=== PATIENT | female | born 1950 | race Caucasian/White ===

== ENCOUNTER 2022-02-23 08:06 | Outpatient (CLI) | payer MEDICARE, SELFPAY ==
--- NOTE | 2022-02-23 08:14 | MM_ITS ---
WS: [id number] BILATERAL SCREENING DIGITAL BREAST TOMOSYNTHESIS MAMMOGRAM WITH CAD HISTORY: SCREENING COMPARISON: 04/19/2021 and 11/07/2017 Bilateral CC and MLO views with tomosynthesis and synthetic mammography submitted. Computer aided det ection analyzed. Breast composition: There are scattered areas of fibroglandular density. No suspicious masses, microc alcifications or architectural distortion. MM/[id number] IMPRESSION: BI-RADS: 1-Negative FOLLOW UP: 1 Year Follow-up
== END 2022-02-23 08:07 | disposition home or self-care (01) ==
PROVIDERS: PCP Family Medicine; Visit Provider Family Medicine
DX: Z12.31 Encounter for screening mammogram for malignant neoplasm of breast (principal)
CPT/HCPCS: 77063; 77067

== ENCOUNTER 2022-03-24 10:07 | Outpatient (CLI) | payer MEDICARE, SELFPAY ==
--- NOTE | 2022-03-24 | USCV_ITS ---
Anthony Rader Age: 71 Gender: F : 1950 Exam Date: 03/24/2022 10:37 Ordering Phys: Neymar Stapleton MD Technologist: Nitesh Lester Exam Location: [facility] – [place] Indication: History of Takotsubo cardiomyopathy BP: 124 / 68 HR: Rhythm: Sinus Technical Quality: Fair MEASUREMENTS (Male / Female) Normal Values 2D ECHO LV Diastolic Diameter PLAX 3.9 cm 4.2 - 5.9 / 3.9 - 5.3 cm LV Systolic Diameter PLAX 2.5 cm IVS Diastolic Thickness 0.6 cm 0.6 - 1.0 / 0.6 - 0.9 cm IVS Systolic Thickness 0.8 cm LVPW Diastolic Thickness 1.0 cm 0.6 - 1.0 / 0.6 - 0.9 cm LVPW Systolic Thickness 0.9 cm LVOT Diameter 2.0 cm LV Ejection Fraction 2D Teich 67.3 % LV Ejection Fraction MOD 2C 67.4 % LV Ejection Fraction 2C AL 68.4 % LA Diameter 3.1 cm LA Width 3.1 cm LA Height 3.2 cm RA Width 2.7 cm RA Height 3.4 cm Aorta at Sinotubular Diameter 2.3 cm IVC Diameter 1.2 cm M-MODE Aortic Annulus Diameter 2.4 cm LA Ao Ratio MM 1.3 MV E Point Septal Separation 0.2 cm DOPPLER AV Peak Velocity 139.3 cm/s LVOT Peak Velocity 127.0 cm/s AV Area Cont Eq vti 2.7 cm squared AV Area Cont Eq pk 3.0 cm squared MV Peak Velocity 100.0 cm/s MV Area PHT 6.5 cm squared Mitral E to A Ratio 1.3 MV E' Velocity 46.5 cm/s Mitral E to MV E' Ratio 5.0 Mitral E to LV E' Lateral Ratio 5.0 Mitral E to LV E' Septal Ratio 5.0 TR Peak Velocity 244.4 cm/s TR Peak Gradient 23.9 mmHg TR Mean Velocity 198.6 cm/s TR Mean Gradient 16.2 mmHg TR Velocity Time Integral 61.5 cm Right Atrial Pressure 3.0 mmHg Pulmonary Artery Systolic Pressu 26.9 mmHg RV Acceleration Time 0.1 s RV Ejection Time 0.3 s RV AcT/ET 0.5 FINDINGS Left Ventricle Normal left ventricular size, systolic function and wall thickness, with no regional wall motion abnormalities. Left ventricular ejection fraction is estimated at 65 %. Normal diastolic function. Right Ventricle Normal right ventricular size and systolic function. Right ventricular systolic pressure 22 mmHg. Right Atrium Normal right atrial size. Right atrial pressure estimated at 3 mmHg. Left Atrium Normal left atrial size. Mitral Valve Mildly thickened mitral valve. No mitral valve stenosis. Mild mitral valve regurgitation. Aortic Valve Structurally normal trileaflet aortic valve. No aortic valve stenosis. Mild to moderate aortic valve regurgitation. Tricuspid Valve Structurally normal tricuspid valve. Trace tricuspid valve regurgitation. Pulmonic Valve Structurally normal pulmonic valve. No pulmonary valve stenosis. No pulmonary valve regurgitation. Pericardium No pericardial effusion. Aorta Normal size aortic root and proximal ascending aorta. IVC Normal IVC dimension with >50% respiratory change of the inferior vena cava. CONCLUSIONS 1. Normal left ventricular size, systolic function and wall thickness, with no regional wall motion abnormalities. Left ventricular ejection fraction is estimated at 65 %. Normal diastolic function. 2. Mild mitral valve regurgitation. 3. Mild to moderate aortic valve regurgitation. 4. Pulmonary artery pressure estimated at 22 mmHg. 5. No prior similar studies to compare. Lawanda Chin MD (Electronically Signed) Final Date: 24 March 2022 15:17 S
== END 2022-03-24 10:08 | disposition home or self-care (01) ==
PROVIDERS: PCP Family Medicine; Visit Provider Family Medicine
DX: I08.0 Rheumatic disorders of both mitral and aortic valves (principal)
CPT/HCPCS: 93306

== ENCOUNTER 2022-08-03 13:30 | Outpatient (CLI) | payer MEDICARE, SELFPAY ==
--- NOTE | 2022-08-03 13:33 | XR_ITS ---
WS: [id number] SCREENING DEXA SCAN [place] CLINICAL INFORMATION: POSTMENOPAUSAL COMPARISON: None. FINDINGS: The L1-L4 bone mineral density measures 0.939 g/cm2. This corresponds to a T score score of -2.0 and Z score of 0.2. Left femoral neck bone mineral density measures 0.540 g/cm2. This corresponds to a T score of -3.7 an d Z score of -1.8. Right femoral neck bone mineral density measures 0.621 g/cm2. This corresponds to a T score -3.1of an d Z score of -1.1. Mean femoral neck bone mineral density measures 0.580 g/cm2. This corresponds to a T score of -3.4 an d Z score of -1.5. XR/XR DEXA axial skeleton* [id number] IMPRESSION: Osteopenia lumbar spine. Osteoporosis femoral necks. Patient's FRAX calculated 10 year probability for major osteoporotic fracture i s 23.8 % and osteoporotic hip fracture is 11.8%.
== END 2022-08-03 13:31 | disposition home or self-care (01) ==
LOC: RAD 13:31
PROVIDERS: PCP Family Medicine; Visit Provider Family Medicine
DX: Z78.0 Asymptomatic menopausal state (principal); M85.88 Other specified disorders of bone density and structure, other site
CPT/HCPCS: 77080

== ENCOUNTER 2023-02-24 09:44 | Outpatient (CLI) | payer MEDICARE, SELFPAY ==
--- NOTE | 2023-02-24 09:54 | MM_ITS ---
WS: [id number] Bilateral screening 3D tomosynthesis digital mammogram, 02/24/2023 Clinical Data: SCREENING Comparison: 02/23/2022, 03/23/2021, 11/07/2017, 09/13/2016. Findings: The breast parenchymal pattern shows heterogeneous density. No spiculated masses or clustered calcifi cations are seen. There are no secondary signs of carcinoma. There are monitor leads on the right kevin ast. MM/[place] [id number] Impression: 1. Negative bilateral mammogram unchanged. 2. Recommend annual screening mammograms. BIRADS: 1-Negative FOLLOW UP: 1 Year Follow-up The CAD maturity checker was used.
== END 2023-02-24 09:45 | disposition home or self-care (01) ==
PROVIDERS: PCP Family Medicine; Visit Provider Family Medicine
DX: Z12.31 Encounter for screening mammogram for malignant neoplasm of breast (principal)
CPT/HCPCS: 77063; 77067

== ENCOUNTER 2023-04-19 11:02 | Outpatient (CLI) | payer MEDICARE, SELFPAY ==
--- NOTE | 2023-04-19 11:08 | USCV_ITS ---
Anthony Rader Age: 72 Gender: F : 1950 Exam Date: 04/19/2023 11:22 Ordering Phys: Neymar Stapleton MD Technologist: Alva Adams [place] [facility] [place]: AR BP: 115 / 70 HR: 71 Rhythm: Sinus Technical Quality: Adequate MEASUREMENTS (Male / Female) Normal Values 2D ECHO LV Diastolic Diameter PLAX 3.9 cm 4.2 - 5.9 / 3.9 - 5.3 cm LV Systolic Diameter PLAX 2.5 cm LV Chamber Size 3.3 cm IVS Diastolic Thickness 0.8 cm 0.6 - 1.0 / 0.6 - 0.9 cm IVS Systolic Thickness 1.2 cm LVPW Diastolic Thickness 1.2 cm 0.6 - 1.0 / 0.6 - 0.9 cm LVPW Systolic Thickness 1.5 cm RV Chamber Size 2.9 cm LVOT Diameter 2.0 cm LV Ejection Fraction 2D Teich 68.1 % LV Ejection Fraction MOD 2C 73.7 % LV Ejection Fraction 2C AL 74.4 % LA Diameter 2.4 cm LA Width 3.0 cm LA Height 3.8 cm RA Width 2.8 cm RA Height 2.9 cm Aorta at Sinotubular Diameter 2.5 cm IVC Diameter 0.8 cm M-MODE Aortic Annulus Diameter 3.0 cm LA Ao Ratio MM 0.9 MV E Point Septal Separation 0.3 cm DOPPLER AV Peak Velocity 161.0 cm/s LVOT Peak Velocity 140.0 cm/s AV Area Cont Eq vti 2.4 cm squared AV Area Cont Eq pk 2.9 cm squared MV Area PHT 3.7 cm squared Mitral E to A Ratio 1.3 MV E' Velocity 57.5 cm/s Mitral E to MV E' Ratio 5.7 Mitral E to LV E' Lateral Ratio 5.3 Mitral E to LV E' Septal Ratio 6.2 TR Peak Velocity 257.7 cm/s TR Peak Gradient 26.6 mmHg TR Mean Velocity 190.3 cm/s TR Mean Gradient 17.1 mmHg TR Velocity Time Integral 67.7 cm TV Peak E Velocity 51.0 cm/s Right Atrial Pressure 3.0 mmHg Pulmonary Artery Systolic Pressu 29.6 mmHg RV Acceleration Time 0.2 s RV Ejection Time 0.4 s RV AcT/ET 0.5 FINDINGS Left Ventricle Left ventricle is normal in size. LV systolic function is normal with EF of 55-60%. No regional wall motion abnormalities. Right Ventricle Normal in size and function Right Atrium Normal in size Left Atrium Normal in size Mitral Valve Mitral valve prolapse seen. Mild mitral regurgitation. Aortic Valve Structurally normal aortic valve. Mild aortic regurgitation. No significant stenosis. Tricuspid Valve Mild tricuspid regurgitation. RVSP is normal Pulmonic Valve Not well visualized Pericardium Normal Aorta Normal in size IVC Appears to be normal CONCLUSIONS LV systolic function is normal with EF of 55-60% Mild mitral regurgitation. Mild aortic regurgitation. Mild tricuspid regurgitation. Compared to prior echocardiogram from 03/2022, no significant changes are seen Jose Tay MD (Electronically Signed) Final Date: 03 May 2023 17:41 S
== END 2023-04-19 11:03 | disposition home or self-care (01) ==
PROVIDERS: PCP Family Medicine; Visit Provider Family Medicine
DX: I35.1 Nonrheumatic aortic (valve) insufficiency (principal); I34.0 Nonrheumatic mitral (valve) insufficiency; I07.1 Rheumatic tricuspid insufficiency
CPT/HCPCS: 93306

== ENCOUNTER 2024-01-20 19:52 | Emergency (ER) | payer MEDICARE, SELFPAY ==
[2024-01-20 19:59] VITALS: BP 171/79; PULSE 83; RESP 16; TEMP 36.5; O2SAT 100; BMI 18.8
--- NOTE | 2024-01-20 20:11 | CTR_ITS ---
PROCEDURE INFORMATION: Exam: CT Head Without Contrast Exam date and time: 01/20/2024 8:39 PM Age: 73 years old Clinical indication: Injury or trauma; Fall; Blunt trauma (contusions or hematomas); Patient HX: Patient pulled onto concrete ground landing onto left side while walking dog. Hematoma to left parietal. Anticoagulated. ; Additional info: Fall head inj TECHNIQUE: Imaging protocol: Computed tomography of the head without contrast. Radiation optimization: All CT scans at this facility use at least one of these dose optimization techniques: automated exposure control; mA and/or kV adjustment per patient size (includes targeted exams where dose is matched to clinical indication); or iterative reconstruction. COMPARISON: No relevant prior studies available. RADIATION DOSE METRICS: Total DLP (mGy-cm): 1051.26 FINDINGS: Brain: No evidence of intra-axial or extra-axial hemorrhage. No mass effect or midline shift. Porter-white differentiation is maintained. Basilar cisterns are patent. Cerebral ventricles: No hydrocephalus. Paranasal sinuses: Opacification of the left frontal sinus. The visualized paranasal sinuses are otherwise well aerated. Mastoid air cells: The visualized mastoids and middle ears are clear. Bones: Unremarkable. No acute fracture. Soft tissues: Left frontoparietal scalp contusion. CT/CT head wo con* [id number] IMPRESSION: 1. No acute intracranial abnormality.
--- NOTE | 2024-01-20 20:11 | CTR_ITS ---
PROCEDURE INFORMATION: Exam: CT Cervical Spine Without Contrast Exam date and time: 01/20/2024 8:42 PM Age: 73 years old Clinical indication: Injury or trauma; Fall; Blunt trauma; Patient HX: Patient pulled onto concrete ground landing onto left side while walking dog. Hematoma to left parietal. Anticoagulated. ; Additional info: Fall head inj TECHNIQUE: Imaging protocol: Computed tomography of the cervical spine without contrast. Radiation optimization: All CT scans at this facility use at least one of these dose optimization techniques: automated exposure control; mA and/or kV adjustment per patient size (includes targeted exams where dose is matched to clinical indication); or iterative reconstruction. COMPARISON: CT head wo con* [id number] 01/20/2024 8:39 PM RADIATION DOSE METRICS: Total DLP (mGy-cm): 135.27 FINDINGS: Bones/joints: No evidence of acute fracture or subluxation of the cervical spine. The craniocervical junction including the atlantoaxial and atlantooccipital articulations are intact. C2-C3: Mild uncovertebral hypertrophy without central or foraminal stenosis. C3-C4: Mild uncovertebral hypertrophy without central or foraminal stenosis. C4-C5: Uncovertebral hypertrophy results in moderate-severe left-sided foraminal stenosis. Posterior disc protrusion results in mild central stenosis. C5-C6: Uncovertebral hypertrophy results in moderate right-sided foraminal stenosis. No central stenosis. C6-C7: Uncovertebral hypertrophy results in mild bilateral foraminal stenosis. No central stenosis. C7-T1: No central or foraminal stenosis. Lungs: The visualized lung apices are clear. Soft tissues: No gross soft tissue abnormality. No significant prevertebral edema. No evidence of fluid collection or hematoma. CT/CT cervical spin wo con* [id number] IMPRESSION: 1. No evidence of fracture or subluxation of the cervical spine.
--- NOTE | 2024-01-20 20:11 | XRR_ITS ---
PROCEDURE INFORMATION: Exam: XR Left Hip Exam date and time: 01/20/2024 8:33 PM Age: 73 years old Clinical indication: Injury or trauma; Patient HX: Lt hip pain post fall; Additional info: Fall L hp inj TECHNIQUE: Imaging protocol: Radiologic exam of the left hip. Views: 2 or 3 views hip with pelvis when performed. COMPARISON: CR XR lumbar spine min 4V [id number] 10/18/2023 1:29 PM FINDINGS: Bones/joints: No acute fracture or dislocation. Soft tissues: Unremarkable. XR/XR hip LT 2-3V wo/w pel* [id number] IMPRESSION: No acute fracture or dislocation.
--- NOTE | 2024-01-20 20:14 | ED_ITS ---
HPI - Head Injury General: Chief complaint: Head Injury Stated complaint: fall hit head Time Seen by Provider: 01/20/24 20:05 History of Present Illness: 73-year-old female who was walking a dog , when it took off causing her to stumble. She fell to the left, striking her left head on concrete. She also cut her right middle fingertip. She has various scrapes to her knees, feet, and hands. She was not knocked unconscious. She does have a headache. No mentation changes. No vomiting. Associated symptoms: Deny neck pain or vomiting Review of Systems Const: Denies: fever(s) Eyes: Denies: change in vision or blurry vision Card: Denies: chest pain Resp: Denies: dyspnea GI: Denies: abdominal pain or vomiting Musc: Denies: neck pain Physical Exam Const: COMMON NORMALS: no acute distress EXAM LIMITATIONS: no altered mental status GENERAL APPEARANCE: cooperative; not ill appearing HENMT: COMMON NORMALS: Normal external nose present HEAD & SCALP: scalp tenderness (Small parietal contusion) FACE & SINUS: face symmetric NOSE: Normal external nose present Eye: COMMON NORMALS: Equal, round and reactive pupils present and EOMs intact bilaterally PUPIL: Yes Equal, round and reactive pupils present Neck/C-Spine: COMMON NORMALS: full ROM GENERAL: Yes trachea midline CERVICAL SPINE: No Cervical spine tenderness Resp: COMMON NORMALS: normal respiratory effort and clear to auscultation bilaterally AUSCULTATION: clear to auscultation bilaterally Cardio: COMMON NORMALS: regular rate and regular rhythm RATE: regular rate RHYTHM: regular rhythm GI: COMMON NORMALS: Soft to palpation PALPATION: Yes Soft to palpation Extremity: NARRATIVE EXTREMITY EXAM: Some lateral hip tenderness on the left. No pain on pelvic compression. No logroll pain. Right wrist tenderness without deformity. Mild soft tissue swelling on the ulnar side of the wrist. Neuro: GRISELDA COMA SCALE: document GCS findings Skin: NARRATIVE SKIN EXAM: Less than 1 cm superficial laceration to right third fingertip. Abrasions to right hand, right and left feet, left knee. Course Vital Signs: Vital signs: Vital Signs Temperature 97.7 F 01/20/24 19:59 Pulse Rate 80 01/20/24 22:49 Respiratory Rate 16 01/20/24 22:49 Blood Pressure 171/79 01/20/24 19:59 Pulse Oximetry 98 01/20/24 22:49 Oxygen Delivery Me thod Room Air 01/20/24 19:59 MDM - Head Injury Medcial Decision Making Patient's mental status has remained stable. No vomiting. Head and cervical spine CTs are negative. Hip x-ray is negative. Wrist x-ray shows soft tissue swelling with a likely volar joint effusion. Radiology believes there may be a nondisplaced ulnar styloid fracture. On my read, there appears to be cortical disruption of the triquetrium. She was informed of this. She is placed in a Velcro wrist brace to be worn as a cast. Close orthopedic follow-up for repeat x-ray and clinical monitoring. Small laceration to the right third finger is occluded with Dermabond with bleeding controlled. The patient believes she has had tetanus immunization in the last 5 years. She will follow-up with Dr. Stapleton next week, as well as orthopedics. To return for any problems. Lab Data Radiology Impressions Cervical Spine CT 01/20/24 20:11 IMPRESSION: 1. No evidence of fracture or subluxation of the cervical spine. Head CT 01/20/24 20:11 IMPRESSION: 1. No acute intracranial abnormality. Hip/Pelvis X-Ray 01/20/24 20:11 IMPRESSION: No acute fracture or dislocation. Wrist X-Ray 01/20/24 21:12 IMPRESSION: Question nondisplaced ulnar styloid fracture, only seen on AP view. Otherwise, no acute fracture or dislocation. All radiology interpretation(s) finalized by discharge Discharge Plan Discharge Patient Disposition: Home Clinical Impression: Contusion of parietal region of scalp, Fracture of triquetral bone of right wrist Condition: Stable Prescriptions: New hydrocodone-acetaminophen 5-325 mg tablet 1 tab PO Q8H PRN (Reason: pain) Qty: 7 0RF Discharge Orders: Discharge ED (Routine); Ordered 01/20/24 Ordered By: Saud Quintanilla Referrals: Neymar Stapleton MD [Primary Care Provider] - 4-7 days Cody Romo DO [Physician] - 4-7 days Patient Instructions: Wrist Fracture in Adults (ED), Opioid Safety, Pain Management Activity Restrictions/Additional Instructions: Stay in your brace, until seen by orthopedics. Give them a call on Monday for a follow-up appointment next week. Ice can help with pain. Ice up to 30 minutes at a time as necessary for pain and swelling. A prescription for a better brace has been written for you. You may take it to [facility] for fitment on Monday. Return for any problems including increased pa in despite treatment, worsening swelling despite treatment, rebleeding of your finger laceration, other concerning symptoms. Coding Level of Care Code ED Pinion Sorter for Alessia Jules
--- NOTE | 2024-01-20 21:12 | XRR_ITS ---
PROCEDURE INFORMATION: Exam: XR Right Wrist Exam date and time: 01/20/2024 9:24 PM Age: 73 years old Clinical indication: Injury or trauma; Fall; Blunt trauma (contusions or hematomas); Right; Patient HX: C/O RT wrist pain after being pulled down onto concrete ground while walking dog. ; Additional info: Post fall TECHNIQUE: Imaging protocol: Radiologic exam of the right wrist. Views: 1 or 2 views. COMPARISON: No relevant prior studies available. FINDINGS: Bones/joints: Question nondisplaced ulnar styloid fracture, only seen on AP view. Otherwise, no acute fracture or dislocation. Soft tissues: Mild soft tissue swelling along the volar and lateral wrist. XR/XR wrist RT 2V [id number] IMPRESSION: Question nondisplaced ulnar styloid fracture, only seen on AP view. Otherwise, no acute fracture or dislocation.
[2024-01-20 22:20] VITALS: RESP 16; O2SAT 98
[2024-01-20] MEDS: oxyCODONE-APAP 5-325 mg Tablet 2 TAB PO (22:20)
[2024-01-20 22:49] VITALS: PULSE 80; RESP 16; O2SAT 98
--- NOTE | 2024-01-20 22:52 | PC.NURSE ---
Pt was sent home with 1x tab of Oxycodone per Dr Quintanilla's orders.
== END 2024-01-20 22:24 | disposition home or self-care (01) ==
PROVIDERS: Emergency Provider Emergency Medicine; PCP Family Medicine
DX: S00.03XA Contusion of scalp, initial encounter (principal); S62.111A Displaced fracture of triquetrum [cuneiform] bone, right wrist, initial encounter for closed fracture; S61.212A Laceration without foreign body of right middle finger without damage to nail, initial encounter; W01.0XXA Fall on same level from slipping, tripping and stumbling without subsequent striking against object, initial encounter
CPT/HCPCS: 70450; 72125; 73100; 73502; 99284

== ENCOUNTER 2024-02-01 06:00 | Outpatient (CLI) | payer MEDICARE, SELFPAY | END 2024-02-01 23:59 | disposition home or self-care (01) | LOC: SOT 02-02 10:18 | PROVIDERS: Visit Provider Student in an Organized Health Care Education/Training Program | DX: Z46.89 Encounter for fitting and adjustment of other specified devices (principal); S62.113D Displaced fracture of triquetrum [cuneiform] bone, unspecified wrist, subsequent encounter for fracture with routine healing; X58.XXXD Exposure to other specified factors, subsequent encounter | CPT/HCPCS: 97760; 99204; L3906 ==

== ENCOUNTER → 2024-02-01 07:54 | Outpatient (BNVA) | payer MEDICARE, SELFPAY | PROVIDERS: PCP Family Medicine; Visit Provider Student in an Organized Health Care Education/Training Program | DX: S62.111A Displaced fracture of triquetrum [cuneiform] bone, right wrist, initial encounter for closed fracture (principal); S62.101A Fracture of unspecified carpal bone, right wrist, initial encounter for closed fracture; W18.39XA Other fall on same level, initial encounter; Y93.K1 Activity, walking an animal | CPT/HCPCS: 73110 ==

== ENCOUNTER 2024-02-26 11:44 | Outpatient (CLI) | payer MEDICARE, SELFPAY ==
--- NOTE | 2024-02-26 11:53 | MM_ITS ---
WS: [id number] Bilateral screening 3D tomosynthesis digital mammogram, 02/26/2024 Clinical Data: SCREENING Comparison: 02/24/2023, 02/23/2022, 03/23/2021, 11/07/2017, 09/13/2016. Findings: The breast parenchymal pattern shows heterogeneous density. No spiculated masses or clustered calcifi cations are seen. There are no secondary signs of carcinoma. MM/[id number] Impression: 1. Negative bilateral mammogram unchanged. 2. Recommend annual screening mammograms. BIRADS: 1-Negative FOLLOW UP: 1 Year Follow-up The CAD checker product design was used.
== END 2024-02-26 11:45 | disposition home or self-care (01) ==
LOC: RAD 11:44
PROVIDERS: Visit Provider Family Medicine
DX: Z12.31 Encounter for screening mammogram for malignant neoplasm of breast (principal)
CPT/HCPCS: 77063; 77067

== ENCOUNTER → 2024-03-05 08:13 | Outpatient (BNVA) | payer MEDICARE, SELFPAY | PROVIDERS: Visit Provider Student in an Organized Health Care Education/Training Program | DX: S62.101A Fracture of unspecified carpal bone, right wrist, initial encounter for closed fracture; X58.XXXA Exposure to other specified factors, initial encounter | CPT/HCPCS: 73110 ==

== ENCOUNTER 2024-03-05 10:14 | Outpatient (CLI) | payer MEDICARE, SELFPAY | END 2024-03-05 10:15 | disposition home or self-care (01) | LOC: SPT 10:27 | PROVIDERS: Visit Provider Student in an Organized Health Care Education/Training Program | DX: Z46.89 Encounter for fitting and adjustment of other specified devices (principal); S62.109D Fracture of unspecified carpal bone, unspecified wrist, subsequent encounter for fracture with routine healing; X58.XXXD Exposure to other specified factors, subsequent encounter | CPT/HCPCS: 99213; L3908 ==

== ENCOUNTER 2024-03-12 09:51 | Outpatient (RCR) | payer MEDICARE, SELFPAY | END 2024-03-20 23:59 | disposition home or self-care (01) | LOC: SOT 09:51 | PROVIDERS: PCP Family Medicine; Visit Provider Student in an Organized Health Care Education/Training Program | DX: S62.101D Fracture of unspecified carpal bone, right wrist, subsequent encounter for fracture with routine healing (principal); X58.XXXD Exposure to other specified factors, subsequent encounter | CPT/HCPCS: 97110; 97165; 97530 ==

== ENCOUNTER → 2024-04-30 08:42 | Outpatient (BNVA) | payer MEDICARE, SELFPAY | PROVIDERS: PCP Family Medicine; Visit Provider Physician Assistant | DX: S62.101A Fracture of unspecified carpal bone, right wrist, initial encounter for closed fracture; X58.XXXA Exposure to other specified factors, initial encounter | CPT/HCPCS: 73110; 99213 ==

== ENCOUNTER 2025-02-28 08:40 | Outpatient (CLI) | payer MEDICARE, SELFPAY ==
--- NOTE | 2025-02-28 08:46 | MM_ITS ---
WS: [id number] BILATERAL 3D TOMOSYNTHESIS DIGITAL SCREENING MAMMOGRAPHY WITH CAD CLINICAL INFORMATION: SCREENING HISTORY: Screening mammogram. No current complaints. COMPARISON: 2023 TECHNIQUE: Bilateral CC and MLO views. FINDINGS: The breasts are composed of heterogeneous fibroglandular density tissue, which can limit the detection of small underlying mass lesions. No suspicious mass, asymmetry, calcifications, or architectural distortion. No evidence of malignancy. Vascular calcification. MM/MM [facility] tomosynthesis [id number] IMPRESSION: DENSITY: The breasts are heterogeneously dense, which may obscure small masses. BI-RADS: 2 - Benign FOLLOW UP: 1 Year Follow-up Recommend return to annual screening mammography.
== END 2025-02-28 08:41 | disposition home or self-care (01) ==
LOC: RAD 08:41
PROVIDERS: PCP Family Medicine; Visit Provider Family Medicine
DX: Z12.31 Encounter for screening mammogram for malignant neoplasm of breast (principal); R92.333 Mammographic heterogeneous density, bilateral breasts; R92.1 Mammographic calcification found on diagnostic imaging of breast
CPT/HCPCS: 77063; 77067